=== PATIENT | female | born 1975 | race Caucasian/White ===

== ENCOUNTER 2021-12-21 05:11 | Emergency (ER) | payer BC ==
[2021-12-21] MEDS ORDERED: Ondansetron 4 MG/2 ML SDV IVPUSH PRN (06:05)
[2021-12-21] MEDS ORDERED: Ketorolac 30 MG/ML SDV IVPUSH PRN (06:06)
[2021-12-21] MEDS ORDERED: Sodium Chloride 0.9% 1,000 ML IV SCH (06:15)
[2021-12-21] MEDS ORDERED: Promethazine 25 MG/ML SDV IM ONE (06:42)
== END 2021-12-21 07:45 | disposition home or self-care (01) ==
LOC: LL.ED 05:11
DX: G43.909 Migraine, unspecified, not intractable, without status migrainosus (principal); F17.210 Nicotine dependence, cigarettes, uncomplicated; Z90.710 Acquired absence of both cervix and uterus; Z88.1 Allergy status to other antibiotic agents; Z79.899 Other long term (current) drug therapy
CPT/HCPCS: 96372; 96374; 96375; 99283; 99283-25; J1885; J2405; J2550; J7030